=== PATIENT | male | born 1990 | race Caucasian/White ===

== ENCOUNTER 2022-06-23 15:09 | Emergency (ER) | payer BC, OTHER ==
[2022-06-23] MEDS ORDERED: HYDROmorphone 1 MG/ML Syringe ONE ×2 (15:22→15:39)
[2022-06-23] MEDS ORDERED: ceFAZolin 1 GM Vial ONE (15:23)
[2022-06-23] MEDS ORDERED: Diphtheria,Pertussis(Acell),Tetanus Vaccine 0.5 ML Syringe ONE (15:30)
[2022-06-23 15:38] LABS: PTT,PARTIAL THROMBOPLSTIN TIME 23.6 SEC (20.5-30.9)
[2022-06-23 15:41] LABS: ANION GAP 14.3 mmol/L (5-15); CHLORIDE,CL 104 mmol/L (98-107); ESTIMATED GFR 118 mL/min (>=60); SODIUM,NA 141 mmol/L (136-145)
[2022-06-23] MEDS ORDERED: Tranexamic Acid 1,000 MG in Sodium Chloride 0.9% 100 ML IV ONE (17:42)
[2022-06-23] MEDS ORDERED: Sodium Chloride 0.9% 1,000 ML IV ONE (17:42)
[2022-06-23] MEDS ORDERED: ceFAZolin 1 GM Vial IVPUSH ONE (17:42)
[2022-06-23] MEDS ORDERED: Tranexamic Acid 1,000 MG in Sodium Chloride 0.9% 500 ML IV ONE (17:42)
== END 2022-06-23 15:44 | disposition short-term general hospital (02) ==
LOC: VM.ED 15:09
DX: S82.201B Unspecified fracture of shaft of right tibia, initial encounter for open fracture type I or II (principal); S82.401B Unspecified fracture of shaft of right fibula, initial encounter for open fracture type I or II; S72.001A Fracture of unspecified part of neck of right femur, initial encounter for closed fracture; S70.211A Abrasion, right hip, initial encounter; Z23 Encounter for immunization; V49.40XA Driver injured in collision with unspecified motor vehicles in traffic accident, initial encounter; Y92.410 Unspecified street and highway as the place of occurrence of the external cause
CPT/HCPCS: 71045; 72170; 80053; 80307; 85025; 85610; 85730; 90471; 90715; 96361; 96374; 96375; 99285-25